=== PATIENT | male | born 1980 | race Hispanic/Latino ===

== ENCOUNTER 2023-03-11 22:53 | Emergency (ER) | payer BC, OTHER ==
[2023-03-11] MEDS ORDERED: ASPIRIN 81 MG CHEWABLE TABLET ONE (23:39)
[2023-03-11 23:40] LABS: Absolute Lymphocytes (CBC) 1.4 K/uL (0.7-4.9); Hematocrit 42.9 % (39.6-49.0); Lymphocytes % 23.8 % (15.3-44.8); MPV 7.5 fL (7.6-11.3); Platelets 229 thou/uL (152-406); RBC Red Blood Cell Count 4.99 M/uL (4.33-5.43)
[2023-03-11 23:54] LABS: Potassium 3.7 mEq/L (3.5-5.1)
--- NOTE | 2023-03-12 | ER ---
Nurse's Notes [facility] Name: Gus Lockhart Age: 42 yrs Sex: Male : 1980 Arrival Date: 03/11/2023 Time: 22:53 Bed 13 Private MD: Diagnosis: Non ST elevation SC;Chest pain, unspecified;Hyperglycemia, unspecified;Obesity, unspecified;Bradycardia, unspecified-JCT RHYTHM Presentation: 03/11 23:02 Chief complaint: Patient states: LEFT SIDED CHEST PAIN THAT RADIATES DOWN LEFT ARM cm10 ONSET TODAY. PT DESCRIBES THE PAIN PRESSURE. Coronavirus screen: Vaccine status: Patient reports receiving the 2nd dose of the covid vaccine. Client denies travel out of the [place] in the last 14 days. Ebola Screen: Patient denies travel to an Ebola-affected area in the 21 days before illness onset. No symptoms or risks identified at this time. Initial Sepsis Screen: Does the patient meet any 2 criteria? No. Patient's initial sepsis screen is negative. Does the patient have a suspected source of infection? No. Patient's initial sepsis screen is negative. Risk Assessment: Do you want to hurt yourself or someone else? Patient reports no desire to harm self or others. Onset of symptoms was March 11, 2023. 23:02 Method Of Arrival: Ambulatory cm10 23:02 Acuity: ARLET 2 cm10 Triage Assessment: 23:03 General: Appears in no apparent distress. uncomfortable, Behavior is calm, cooperative. cm10 Pain: Complains of pain in chest Pain radiates to left arm Pain currently is 7 out of 10 on a pain scale. Quality of pain is described as pressure, Pain began suddenly, Is continuous, Aggravated by LAYING FLAT. EENT: No deficits noted. No signs and/or symptoms were reported regarding the EENT system. Neuro: No deficits noted. Level of Consciousness is awake, alert, obeys commands, Oriented to person, place, time, situation. Cardiovascular: Chest pain is described as Pain is 7 out of 10 on a pain scale. quality is pressure, is located in left radiates to left arm(s). Cardiovascular: Patient's skin is warm and dry. Respiratory: No deficits noted. Airway is patent Respiratory effort is even, unlabored, Respiratory pattern is regular, symmetrical. GI: No deficits noted. No signs and/or symptoms were reported involving the gastrointestinal system. : No deficits noted. No signs and/or symptoms were reported regarding the genitourinary system. Derm: No deficits noted. Skin is intact, Skin is pink, warm \T\ dry. Musculoskeletal: No deficits noted. No signs and/or symptoms reported regarding the musculoskeletal system. Historical: - Allergies: 23:03 No Known Allergies; cm10 - PMHx: 23:03 None; cm10 - PSHx: 23:03 None; cm10 - Immunization history:: Adult Immunizations unknown. - Social history:: Smoking status: Patient reports the use of cigarette tobacco products, smokes one-half pack cigarettes per day. - Family history:: not pertinent. Screenin:10 [facility] ED Fall Risk Assessment (Adult) History of falling in the last 3 months, jw7 including since admission No falls in past 3 months (0 pts) Score/Fall Risk Level 0 - 2 = Low Risk Oriented to surroundings, Maintained a safe environment. Abuse screen: Denies threats or abuse. Denies injuries from another. Nutritional screening: No deficits noted. Tuberculosis screening: No symptoms or risk factors identified. Assessment: 23:10 General: see triage assessment. jw7 03/12 00:00 Reassessment: Patient appears in no apparent distress at this time. No changes from 7 previously documented assessment. Patient and/or family updated on plan of care and expected duration. Pain level reassessed. Patient is alert, oriented x 3, equal unlabored respirations, skin warm/dry/pink. 01:00 Reassessment: Pt has syncopal episode, junctional rhythm noted on the monitor, HR 24, jw7 pt briefly unresponsive, cardiac pad applied, life pack in place, pt currently alert and oriented X3; HR 75, 104/83, 97% O2 on RA. General:. 01:30 Reassessment: Patient appears in no apparent distress at this time. Patient and/or 7 family updated on plan of care and expected duration. Pain level reassessed. Patient is alert, oriented x 3, equal unlabored respirations, skin warm/dry/pink. Patient denies pain at this time. 01:59 Reassessment: Patient appears in no apparent distress at this time. No changes from jw7 previously documented assessment. Patient is alert, oriented x 3, equal unlabored respirations, skin warm/dry/pink. Vital Signs: 03/11 23:02 BP 140 / 90; Pulse 93; Resp 18 S; Temp 98.4(O); Pulse Ox 98% on R/A; Weight 104.33 kg cm10 (R); Height 5 ft. 9 in. (R); Pain 12/09; 23:13 BP 145 / 98; Pulse 89; Resp 18 S; Pulse Ox 98% on R/A; jw7 03/12 00:00 BP 135 / 89; Pulse 86; Resp 17 S; Pulse Ox 98% on R/A; jw7 00:45 BP 125 / 93; Pulse 74; Resp 18 S; Pulse Ox 99% on R/A; jw7 01:05 BP 107 / 76; Pulse 80; Resp 18 S; Pulse Ox 96% on R/A; jw7 01:15 BP 104 / 75; Pulse 82; Resp 17 S; Pulse Ox 98% on R/A; jw7 01:30 BP 99 / 66; Pulse 75; Resp 18 S; Pulse Ox 97% on R/A; jw7 02:02 BP 111 / 76; Pulse 80; Resp 17 S; Pulse Ox 99% on R/A; jw7 03/11 23:02 Body Mass Index 33.96 (104.33 kg, 175.26 cm) cm10 03/11 23:02 Pain Scale: Adult cm10 ED Course: 03/11 22:55 Patient arrived in ED. mr 23:03 Triage completed. cm10 23:05 Arm band placed on Patient placed in an exam room, on a stretcher. cm10 23:10 Patient has correct armband on for positive identification. Bed in low position. Call [facility] light in reach. Side rails up X 1. Client placed on continuous cardiac and pulse oximetry monitoring. NIBP monitoring applied. 23:12 Kenny Gonsalves MD is Attending Physician. [facility] 23:12 Basic Metabolic Panel Sent. cm10 23:12 CBC with Diff Sent. cm10 23:12 Troponin HS Sent. 10 23:12 Initial lab(s) drawn, by nc, sent to lab. Inserted saline lock: 18 gauge in right cm10 antecubital area, using aseptic technique. Blood collected. Patient maintains SpO2 saturation greater than 95% on room air. 23:23 Shirley Pagan RN is Primary Nurse. [facility] 23:36 XRAY Chest (1 view) In Process Unspecified. EDMS 23:51 Sergio Garcia MD is Hospitalizing Provider. [facility] 03/12 00:56 Inserted saline lock: 18 gauge in right hand, using aseptic technique. cm10 01:06 Initiated transfer with Jinny at [facility]. rv1 01:19 Called RAN at [facility] to transfer pt, given 10 min ETA. rv1 01:[address] Nunez to [facility] CCU 2 Bed 12. rv1 01:24 Received call from RAN at [facility] and was told they had to turn around due to bad rv1 weather, called Brenda at EMS, given 10 min ETA. 01:29 Provided Education on: need for transfer. jw7 01:29 No provider procedures requiring assistance completed. jw7 01:58 Patient transferred, IV remains in place. jw7 Administered Medications: 03/11 23:31 Not Given (Physician Discretion): aspirinchewable tablet 324 mg PO once; 81 mg tablets jw7 x 4 23:40 Drug: Aspirin PO Chewable Tablet 162 mg PO once Route: PO; jw7 03/12 01:31 Follow up: Response: No adverse reaction jw7 00:13 Drug: Metoprolol PO 25 mg PO once Route: PO; jw7 01:31 Follow up: Response: No adverse reaction jw7 00:13 Drug: Enoxaparin Sub-Q 100 mg Sub-Q once Route: Sub-Q; Site: abdomen; jw7 01:31 Follow up: Response: No adverse reaction jw7 00:13 Drug: Famotidine IVP 20 mg IVP once; dilute with 10 mL 0.9% NaCl; give over 2 minutes jw7 Route: IVP; Site: right antecubital; 01:31 Follow up: Response: No adverse reaction jw7 00:42 Drug: morphine IVP or IV 4 mg IVP once over 4 mins Route: IVP; Infused Over: 4 mins; jw7 Site: right antecubital; 01:32 Follow up: Response: No adverse reaction jw7 00:44 Drug: Atorvastatin PO 20 mg PO once Route: PO; jw7 01:32 Follow up: Response: No adverse reaction jw7 00:44 Drug: Clopidogrel PO 300 mg PO once Route: PO; jw7 01:32 Follow up: Response: No adverse reaction jw7 Medication: 01:28 VIS not applicable for this client. jw7 Outcome: 03/11 23:59 Decision to Hospitalize by Provider. christopher 03/12 01:05 ER care complete, transfer ordered by . christopher 01:58 Transferred by ground EMS to [facility] 7 01:58 Condition: stable 01:58 Instructed on the need for transfer, Demonstrated understanding of instructions, 02:01 Patient left the ED. jw7 Signatures: Dispatcher [employer] EDKenny Rocha MD MD cha Rivera, Mary, Reg Reg Shirley Foley, RN RN jw7 [place] rv1 Kimberlee Covington RN RN cm10 Corrections: (The following items were deleted from the chart) 02:13 00:34 Initiated transfer with Jinny at [facility] rv1
--- NOTE | 2023-03-12 | EDPHYS ---
Physician Documentation [facility] Name: Gus Lockhart Age: 42 yrs Sex: Male : 1980 Arrival Date: 03/11/2023 Time: 22:53 Bed 13 Private MD: ED Physician Kenny Gonsalves HPI: 03/11 23:37 This 42 yrs old Male presents to ER via Ambulatory with complaints of Chest christopher Pain, Arm Pain. 23:37 The patient or guardian reports chest pain that is located primarily in the substernal christopher area. Onset: yesterday. The pain radiates to the left arm. Associated signs and symptoms: Pertinent positives: dizziness. The chest pain is described as a pressure. Duration: The patient or guardian reports multiple episodes, that wax and wane. Modifying factors: The symptoms are alleviated by nothing. the symptoms are aggravated by nothing. Severity of pain: At its worst the pain was mild in the emergency department the pain is unchanged despite home interventions. The patient has experienced similar episodes in the past, a few times. Historical: - Allergies: 23:03 No Known Allergies; cm10 - PMHx: 23:03 None; cm10 - PSHx: 23:03 None; cm10 - Immunization history:: Adult Immunizations unknown. - Social history:: Smoking status: Patient reports the use of cigarette tobacco products, smokes one-half pack cigarettes per day. - Family history:: not pertinent. ROS: 23:37 Constitutional: Negative for fever, chills, and weight loss, Eyes: Negative for injury, christopher pain, redness, and discharge, ENT: Negative for injury, pain, and discharge, Neck: Negative for injury, pain, and swelling, Respiratory: Negative for shortness of breath, cough, wheezing, and pleuritic chest pain, Abdomen/GI: Negative for abdominal pain, nausea, vomiting, diarrhea, and constipation, Back: Negative for injury and pain, : Negative for injury, bleeding, discharge, and swelling, MS/Extremity: Negative for injury and deformity, Skin: Negative for injury, rash, and discoloration, Neuro: Negative for headache, weakness, numbness, tingling, and seizure, Psych: Negative for depression, anxiety, suicide ideation, homicidal ideation, and hallucinations, Allergy/Immunology: Negative for hives, rash, and allergies, Endocrine: Negative for neck swelling, polydipsia, polyuria, polyphagia, and marked weight changes, Hematologic/Lymphatic: Negative for swollen nodes, abnormal bleeding, and unusual bruising, 23:37 Cardiovascular: Positive for chest pain, of the chest, Exam: 23:37 Constitutional: This is a well developed, well nourished patient who is awake, alert, christopher and in no acute distress. Head/Face: Normocephalic, atraumatic. Eyes: Pupils equal round and reactive to light, extra-ocular motions intact. Lids and lashes normal. Conjunctiva and sclera are non-icteric and not injected. Cornea within normal limits. Periorbital areas with no swelling, redness, or edema. ENT: Nares patent. No nasal discharge, no septal abnormalities noted. Tympanic membranes are normal and external auditory canals are clear. Oropharynx with no redness, swelling, or masses, exudates, or evidence of obstruction, uvula midline. Mucous membranes moist. Neck: Trachea midline, no thyromegaly or masses palpated, and no cervical lymphadenopathy. Supple, full range of motion without nuchal rigidity, or vertebral point tenderness. No Meningismus. Chest/axilla: Normal chest wall appearance and motion. Nontender with no deformity. No lesions are appreciated. Cardiovascular: Regular rate and rhythm with a normal S1 and S2. No gallops, murmurs, or rubs. Normal PMI, no JVD. No pulse deficits. Respiratory: Lungs have equal breath sounds bilaterally, clear to auscultation and percussion. No rales, rhonchi or wheezes noted. No increased work of breathing, no retractions or nasal flaring. Abdomen/GI: Soft, non-tender, with normal bowel sounds. No distension or tympany. No guarding or rebound. No evidence of tenderness throughout. Back: No spinal tenderness. No costovertebral tenderness. Full range of motion. Male : Normal genitalia with no discharge or lesions. Skin: Warm, dry with normal turgor. Normal color with no rashes, no lesions, and no evidence of cellulitis. MS/ Extremity: Pulses equal, no cyanosis. Neurovascular intact. Full, normal range of motion. Neuro: Awake and alert, GCS 15, oriented to person, place, time, and situation. Cranial nerves II-XII grossly intact. Motor strength 5/5 in all extremities. Sensory grossly intact. Cerebellar exam normal. Normal gait. Psych: Awake, alert, with orientation to person, place and time. Behavior, mood, and affect are within normal limits. 23:37 ECG was reviewed by the Attending Physician. 23:50 Musculoskeletal/extremity: DVT Exam: No signs of deep vein thrombosis. no pain, no christopher swelling, no tenderness, negative Homans' sign noted on exam, no appreciated bluish discoloration, no erythema, no increased warmth, 03/12 01:14 ECG was reviewed by the Attending Physician. christopher Vital Signs: 03/11 23:02 BP 140 / 90; Pulse 93; Resp 18 S; Temp 98.4(O); Pulse Ox 98% on R/A; Weight 104.33 kg cm10 (R); Height 5 ft. 9 in. (R); Pain 12/09; 23:13 BP 145 / 98; Pulse 89; Resp 18 S; Pulse Ox 98% on R/A; jw7 03/12 00:00 BP 135 / 89; Pulse 86; Resp 17 S; Pulse Ox 98% on R/A; jw7 00:45 BP 125 / 93; Pulse 74; Resp 18 S; Pulse Ox 99% on R/A; jw7 01:05 BP 107 / 76; Pulse 80; Resp 18 S; Pulse Ox 96% on R/A; jw7 01:15 BP 104 / 75; Pulse 82; Resp 17 S; Pulse Ox 98% on R/A; jw7 01:30 BP 99 / 66; Pulse 75; Resp 18 S; Pulse Ox 97% on R/A; jw7 02:02 BP 111 / 76; Pulse 80; Resp 17 S; Pulse Ox 99% on R/A; jw7 03/11 23:02 Body Mass Index 33.96 (104.33 kg, 175.26 cm) cm10 03/11 23:02 Pain Scale: Adult cm10 MDM: 03/11 23:12 Patient medically screened. christopher 23:13 Patient medically screened. christopher 23:45 Differential diagnosis: abnormal EKG, acute myocardial infarction, acute pericarditis, christopher anxiety, chest wall pain, Cholelithiasis costochondritis, esophagitis, herpes zoster, hiatal hernia, pancreatitis, peptic ulcer disease, pericarditis, pleurisy, pneumonia, pulmonary embolus, stable angina, thoracic aortic disection, unstable angina. HEART Score: History: Moderately Suspicious (1), ECG: Non specific repolarization disturbance / LBTB / PM (1), Age: < or = 45 years (0), Risk Factors: > or = 3 Risk factors for atherosclerotic disease (2), [Hypertension] [Obesity]. The patient was given aspirin in the Emergency Department. MAGNO Risk Score: 1 - Three or more CAD risk factors, [Family Hx], [HTN], 1 - ASA use in past 7 days. Data reviewed: vital signs, nurses notes, lab test result(s), EKG, radiologic studies, plain films. Consideration of Admission/Observation Patient was admitted/placed on observation. Escalation of care including admission/observation considered. I considered the following discharge prescriptions or medication management in the emergency department Medications were administered in the Emergency Department. See MAR. Independent interpretation of the following test(s) in the Emergency Department EKG: See my EKG interpretation above. Test considered but Not performed: CT: no pe study. Historians other than the Patient: Spouse/Significant Other: , well informed. Care significantly affected by the following chronic conditions: Hypertension. Counseling: I had a detailed discussion with the patient and/or guardian regarding the historical points, exam findings, and any diagnostic results supporting the discharge/admit diagnosis, the presence of at least one elevated blood pressure reading (>120/80) during this emergency department visit, lab results, radiology results, the need for further work-up and treatment in the hospital. 03/11 23:06 Order name: Basic Metabolic Panel; Complete Time: 00:37 cm10 03/11 23:06 Order name: CBC with Diff; Complete Time: 00:07 cm10 03/11 23:06 Order name: Troponin HS; Complete Time: 00:37 cm10 03/11 23:19 Order name: Lipase; Complete Time: 00:37 EDMS 03/12 00:13 Order name: Lipid Profile; Complete Time: 00:37 EDMS 03/11 23:06 Order name: XRAY Chest (1 view) cm10 03/11 23:06 Order name: EKG; Complete Time: 23:06 cm10 03/12 00:50 Order name: EKG; Complete Time: 00:51 christopher 03/11 23:06 Order name: Cardiac monitoring; Complete Time: 23:24 cm10 03/11 23:06 Order name: EKG - Nurse/Tech; Complete Time: 23:08 [facility] 03/11 23:06 Order name: IV Saline Lock; Complete Time: 23:12 [facility] 03/11 23:06 Order name: Labs collected and sent; Complete Time: 23:12 [facility] 03/11 23:06 Order name: O2 Per Protocol; Complete Time: 23:24 [facility] 03/11 23:06 Order name: O2 Sat Monitoring; Complete Time: 23:24 [facility] 03/12 00:50 Order name: EKG - Nurse/Tech; Complete Time: 00:56 christopher EC:37 Rate is 93 beats/min. Rhythm is regular. QRS [place] is Normal. [place] interval is normal. QRS christopher interval is normal. QT interval is normal. No Q waves. T waves are Normal. No ST changes noted. Clinical impression: NSR w/ Non-specific ST/T Changes and No evidence of ischemia. Interpreted by me. Reviewed by me. 03/12 01:14 Rate is 78 beats/min. Rhythm is regular. QRS [place] is Normal. [place] interval is normal. QRS christopher interval is normal. QT interval is normal. No Q waves. T waves are Normal. No ST changes noted. Clinical impression: Normal ECG, NSR w/ Non-specific ST/T Changes, and No evidence of ischemia. Interpreted by me. Reviewed by me. Administered Medications: 03/11 23:31 Not Given (Physician Discretion): aspirinchewable tablet 324 mg PO once; 81 mg tablets jw7 x 4 23:40 Drug: Aspirin PO Chewable Tablet 162 mg PO once Route: PO; jw7 03/12 01:31 Follow up: Response: No adverse reaction jw7 00:13 Drug: Metoprolol PO 25 mg PO once Route: PO; jw7 01:31 Follow up: Response: No adverse reaction jw7 00:13 Drug: Enoxaparin Sub-Q 100 mg Sub-Q once Route: Sub-Q; Site: abdomen; jw7 01:31 Follow up: Response: No adverse reaction jw7 00:13 Drug: Famotidine IVP 20 mg IVP once; dilute with 10 mL 0.9% NaCl; give over 2 minutes jw7 Route: IVP; Site: right antecubital; :31 Follow up: Response: No adverse reaction jw7 00:42 Drug: morphine IVP or IV 4 mg IVP once over 4 mins Route: IVP; Infused Over: 4 mins; jw7 Site: right antecubital; :32 Follow up: Response: No adverse reaction jw7 00:44 Drug: Atorvastatin PO 20 mg PO once Route: PO; jw7 01:32 Follow up: Response: No adverse reaction jw7 00:44 Drug: Clopidogrel PO 300 mg PO once Route: PO; jw7 01:32 Follow up: Response: No adverse reaction jw7 Disposition Summary: 03/12/23 01:05 Transfer Ordered Notes: Transfer Location: [facility] christopher Reason: Higher level of care christopher Condition: Critical(03/12/23 01:05) christopher Problem: new(03/12/23 01:05) christopher Symptoms: have improved(03/12/23 01:05) christopher Accepting Physician: TO CCU, [facility](03/12/23 02:01) jw7 Diagnosis - Non ST elevation PR(03/12/23 01:05) christopher - Chest pain, unspecified(03/12/23 01:05) christopher - Hyperglycemia, unspecified christopher - Obesity, unspecified christopher - Bradycardia, unspecified - JCT RHYTHM christopher Forms: - Medication Reconciliation Form christopher - SBAR form christopher Signatures: Dispatcher [employer] EDMS Kenny Gonsalves MD MD cha Attema, Lee, OPTOMETRIC AIDE-C OPTOMETRIC AIDE-Cla1 Shirley Pagan, RN RN jw7 Kimberlee Covington RN RN cm10 Corrections: (The following items were deleted from the chart) 03/11 23:17 23:15 LIPASE+C.LAB.BRZ ordered. EDMS EDMS 03/12 00:11 00:08 LIPID PROFILE+C.LAB.BRZ ordered. EDMS EDMS 00:13 00:00 D-DIMER+COAG.LAB.BRZ ordered. EDMS EDMS 00:38 03/11 23:59 christopher cm10 03/12 00:44 03/11 23:59 Observation christopher christopher 03/12 00:53 03/11 23:59 Telemetry/MedSurg (Inpatient) christopher cm10 03/12 00:53 00:38 412 cm10 cm10 00:57 03/11 23:59 RadhaSergio peterson christopher christopher 03/12 00:57 03/11 23:59 Stable christopher christopher 03/12 00:57 03/11 23:59 new christopher christopher 03/12 00:57 03/11 23:59 have improved christopher christopher 03/12 00:57 10 23:59 Standard christopher christopher 03/12 00:57 03/11 23:59 Chest pain, unspecified christopher christopher 03/12 00:57 03/11 23:59 Essential (primary) hypertension christopher christopher 03/12 00:57 00:44 Inpatient Admission christopher christopher 00: 00:[address] elevation PR christopher christopher 00:57 00:53 Telemetry/MedSurg (observation) cm10 christopher 00:57 00:53 cm10 christopher 02:01 01:05 TO CCU, [facility] cha jw7
[2023-03-12 00:04] LABS: Troponin High Sensitivity 124.5 pg/mL (<58.9)
[2023-03-12] MEDS ORDERED: ENOXAPARIN 100 MG/ML SYR SQ ONE (00:06)
[2023-03-12] MEDS ORDERED: FAMOTIDINE 20 MG/2 ML VIAL IV ONE (00:06)
[2023-03-12] MEDS ORDERED: METOPROLOL TAR 25 MG TAB ONE (00:06)
[2023-03-12] MEDS ORDERED: ATORVASTATIN 20 MG TAB ONE (00:29)
[2023-03-12] MEDS ORDERED: CLOPIDOGREL 75 MG TABLET ONE (00:29)
--- NOTE | 2023-03-12 00:42 | P.HP ---
Certification for Inpatient Patient admitted to: Inpatient With expected LOS: >2 Midnights Patient will require the following post-hospital care: None Practitioner: I am a practitioner with admitting privileges, knowledge of patient current condition, hospital course, and medical plan of care. Services: Services provided to patient in accordance with Admission requirements found in Title 42 Section 412.3 of the Code of Federal Regulations Patient History Date of Service: 03/12/23 Reason for admission: NSTEMI History of Present Illness: 42-year-old male with no known past medical history presents emergency department with chest pain. He reports that the pain began about 36 hours before arrival to the emergency department. His pain is described as pressure- like radiating down the left arm worse when lying flat. He was evaluated here in the emergency department his labs were significant for initial high sensitive troponin of 124.5 other labs unremarkable chest x-ray negative for acute findings. In the ER he was given therapeutic Lovenox, Plavix, aspirin, metoprolol, atorvastatin. His last cardiac evaluation was in 2015 when he had a stress test and echocardiogram which were normal at that time. He has never had a heart catheterization. He will need to be admitted for further evaluation and management of NSTEMI. Allergies No Known Allergies Allergy (Unverified 04/03/12 09:23) Home Medications: Promethazine Tab [Phenergan*] 25 mg PO Q6HP PRN 02/29/16 - Past Medical/Surgical History Diabetic: No -: Viral Hepatitis Psychosocial/ Personal History: Lives at home with family - Family History Family History: Reviewed- Non-Contributory - Social History Smoking Status: Current every day smoker Counseled patient to stop smoking for: less than 10 minutes Alcohol use: Yes CD- Drugs: No Caffeine use: Yes Place of Residence: Home Review of Systems 10-point ROS is otherwise unremarkable Cardiovascular: Chest Pain Physical Examination - Physical Exam General: Alert, In no apparent distress, Oriented x3 HEENT: Atraumatic, PERRLA, Mucous membr. moist/pink, EOMI, Sclerae nonicteric Neck: Supple, 2+ carotid pulse no bruit, No LAD, Without JVD or thyroid abnormality Respiratory: Clear to auscultation bilaterally, Normal air movement Cardiovascular: Regular rate/rhythm, Normal S1 S2 Capillary refill: <2 Seconds Gastrointestinal: Normal bowel sounds, No tenderness Musculoskeletal: No tenderness Integumentary: No rashes Neurological: Normal speech, Normal strength at 5/5 x4 extr, Normal tone, Normal affect - Studies Laboratory Data (last 24 hrs) 03/12/23 03/11/23 03/11/23 00:08 23:15 23:12 WBC 6.00 Hgb 14.7 Hct 42.9 Plt Count 229 Sodium Potassium BUN Creatinine Glucose Triglycerides Cancelled Cholesterol Cancelled HDL Cholesterol Cancelled Cholesterol/HDL Ratio Cancelled Lipase Cancelled 03/11/23 23:12 WBC Hgb Hct Plt Count Sodium 137 Potassium 3.7 BUN 14 Creatinine 0.79 Glucose 195 H Triglycerides 142 Cholesterol 137 HDL Cholesterol 40 Cholesterol/HDL Ratio 3.43 Lipase 46 Assessment and Plan - Plan Assessment: NSTEMI Hyperglycemia Tobacco abuse Plan: NSTEMI N.p.o., therapeutic Lovenox, daily aspirin, statin, beta-urban. As needed morphine, nitroglycerin. No STEMI criteria on EKG, chest x-ray unremarkable. Trend troponin, monitor on telemetry, cardiology consult. Hyperglycemia A1c in the morning. Tobacco abuse Counseled on need for tobacco cessation. DVT PPX: Therapeutic Lovenox Code status: Full Discharge Plan: Home Plan to discharge in: 48 Hours - Advance Directives Does patient have a Living Will: No Does patient have a Durable POA for Healthcare: No - Code Status/Comfort Care Code Status Assessed: Yes (Full code) Critical Care: No Time Spent Managing Pts Care (In Minutes): 55
[2023-03-12] MEDS ORDERED: MORPHINE 4 MG/ML SYR ONE (00:50)
[2023-03-12 03:03] VITALS: TEMP 98.4
[2023-03-12 03:10] VITALS: BP 99/66; O2SAT 97
--- NOTE | 2023-03-12 12:18 | RAD REPORT ---
EXAM DESCRIPTION: RAD - Chest Single View - 03/11/2023 11:34 pm CLINICAL HISTORY: 42 years Male, CHEST PAIN COMPARISON: None. FINDINGS: Single portable AP view of the chest. Trachea is midline. Normal size of the cardiac silho uette. Soft tissue attenuation over the lateral chest bilaterally. No pulmonary vascular congestion. No focal consolidation, effusion, or pneumothorax. No acute osseous abnormality. IMPRESSION: No acute radiographic abnormality. Electronically signed by: Coreen Lee MD 03/11/2023 11:44 PM CDT Due to temporary technical issues with the PACS/Fluency reporting system, reports are being signed by the in house radiologist without review as a courtesy to ensure prompt reporting. The interpreting r adiologist is fully responsible for the content of the report.
--- NOTE | 2023-03-12 12:35 | EKG ---
Test Date: 2023-03-12 Test Time: 00:53:27 Dialysis Clinical Manager: DERIK MEASUREMENT RESULTS: Intervals: Rate: 78 AK: 138 QRSD: 84 QT: 364 QTc: 414 [place]: P: 38 AK: 138 QRS: 64 T: 29 INTERPRETIVE STATEMENTS: Normal sinus rhythm Normal ECG Compared to ECG 03/11/2023 23:07:51 Myocardial infarct finding no longer present Electronically Signed On 03-12-23 12:34:22 CDT by Sabas Hong
--- NOTE | 2023-03-12 12:36 | EKG ---
Test Date: 2023-03-11 Test Time: 23:07:51 Physical Science Technician: BP MEASUREMENT RESULTS: Intervals: Rate: 93 OR: 156 QRSD: 82 QT: 352 QTc: 437 [place]: P: 18 OR: 156 QRS: 30 T: 22 INTERPRETIVE STATEMENTS: Normal sinus rhythm Anterior infarct, age undetermined Abnormal ECG Compared to ECG 02/29/2016 12:59:05 Myocardial infarct finding now present Electronically Signed On 03-12-23 12:34:31 CDT by Sabas Hong
== END 2023-03-12 02:01 | disposition short-term general hospital (02) ==
LOC: ER 22:53 → UNDOADMIN 03-12 00:22 → ERHOLD 03-12 00:22 → ER 03-12 02:01
DX: I21.4 Non-ST elevation (NSTEMI) myocardial infarction (principal); R73.9 Hyperglycemia, unspecified; F17.210 Nicotine dependence, cigarettes, uncomplicated; R00.1 Bradycardia, unspecified; E66.9 Obesity, unspecified; Z68.33 Body mass index [BMI] 33.0-33.9, adult
CPT/HCPCS: 93005 ×2; 85025; 80048; 36415; 80061; 84484; 83690; 71045; J1650